=== PATIENT | female | born 1985 | race African-American/Black ===

== ENCOUNTER 2019-06-15 20:54 | Emergency (ER) | payer MEDICAID ==
[~2019-06-15] VITALS: Ht 172.7 cm; Wt 75.3 kg
--- NOTE | 2019-06-15 22:06 | NUR ---
CALLED PT IN WAITING ROOM. NO RESPONSE.
--- NOTE | 2019-06-15 22:58 | NUR ---
PT BIBS. C/O "TOOK SOME PILLS, I DONT KNOW WHAT KIND, ABOUT 2 HRS AGO" PT AMBULATORY. VSS. LETHARGIC BUT RESPONSIVE. +SI. SITTER AT BEDSIDE. SAFETY PRECAUTIONS IMPLEMENTED.
[2019-06-15 23:08] LABS: BASOPHILS # (AUTO) 0.1 /CMM (0.0-0.2); BASOPHILS % (AUTO) 1.3 % (0.0-2.0); EOSINOPHILS % (AUTO) 1.6 % (0.0-6.0); HEMATOCRIT 31 % (33-45); HEMOGLOBIN 10.4 g/dL (11.5-14.8); LYMPHOCYTES # (AUTO) 4.1 /CMM (0.8-4.8); MEAN CORPUSCULAR HGB CONC 34 g/dl (31.0-36.0); MEAN CORPUSCULAR VOLUME 88 fL (82-100); MONOCYTES # (AUTO) 0.6 /CMM (0.1-1.30); MONOCYTES % (AUTO) 7.3 % (2.0-12.0); NEUTROPHILS # (AUTO) 3.7 /CMM (1.8-8.9); NEUTROPHILS % (AUTO) 42.8 % (43.0-81.0); PLATELET COUNT (AUTO) 287 /CMM (150-450); RED BLOOD CELL COUNT(AUTO) 3.52 MIL/uL (4.0-5.2); WHITE BLOOD COUNT (AUTO) 8.7 K/uL (4.3-11.0)
--- NOTE | 2019-06-15 23:10 | NUR ---
EKG IN PROGRESS AT BEDSIDE
[2019-06-15 23:15] LABS: CALCIUM, SERUM 9.1 mg/dL (8.5-10.1); CARBON DIOXIDE 27 mmol/L (21-32); CHLORIDE 107 mmol/L (98-107); CREATININE 0.8 mg/dL (0.6-1.3); GLUCOSE 117 mg/dL (74-106); POTASSIUM 3.7 mmol/L (3.5-5.1); SODIUM SERUM 144 mmol/L (136-145); UREA NITROGEN, BLOOD 9 mg/dL (7-18)
--- NOTE | 2019-06-15 23:20 | NUR ---
URINE COLLECTED AND SENT TO LAB
[2019-06-15 23:21] LABS: ACETAMINOPHEN 0 ug/ml (10-30); ALANINE AMINOTRANSFERASE 29 U/L (12-78); ALBUMIN 3.5 g/dL (3.4-5.0); ALCOHOL, BLOOD < 3 mg/dL (0-0); ALKALINE PHOSPHATASE 48 U/L (46-116); ASPARTATE AMINOTRANSFERASE 21 U/L (15-37); BILIRUBIN,DIRECT 0.1 mg/dL (0.0-0.2); BILIRUBIN,TOTAL 0.2 mg/dL (0.2-1.0); SALICYLATE 3.4 mg/dL (2.8-20.0); TOTAL PROTEIN, SERUM 6.9 g/dL (6.4-8.2)
[2019-06-15 23:22] LABS: APPEARANCE,URINE CLEAR (CLEAR); BILIRUBIN,URINE NEGATIVE (NEGATIVE); BLOOD, URINE SMALL Ery/uL (NEGATIVE); COLOR,URINE YELLOW (YELLOW); KETONES,URINE NEGATIVE (NEGATIVE); LEUKOCYTE ESTERASE ,URINE NEGATIVE (NEGATIVE); NITRITE, URINE NEGATIVE (NEGATIVE); PROTEIN,URINE NEGATIVE (NEGATIVE); UGLUCOSE NEGATIVE (NEGATIVE); UROBILINOGEN,URINE 0.2 EU/dL (0.2)
[2019-06-16 06:54] VITALS: BP 101/94
--- NOTE | 2019-06-16 06:54 | NUR ---
Patient discharged to home in stable condition. Written and verbal after care instructions given. Patient verbalizes understanding of instruction.
== END 2019-06-16 06:55 | disposition home or self-care (01) ==
LOC: ER 20:54
DX: R45.851 Suicidal ideations (principal); F12.10 Cannabis abuse, uncomplicated; F15.10 Other stimulant abuse, uncomplicated; Z59.0 Homelessness
CPT/HCPCS: 36415; 80048; 80076; 80305; 80307; 80329; 81001; 84703; 85025; 93005; 99284; G0480; 81000-TC

== ENCOUNTER 2019-10-08 14:36 | Emergency (ER) | payer MEDICAID ==
[~2019-10-08] VITALS: Ht 162.6 cm; Wt 84.4 kg
--- NOTE | 2019-10-08 14:49 | NUR ---
patient came in to ther er c/o suicidal thoughts, "i am depress, i miss my mom", I want to overdose on pills. Needs medical clearance prior voluntary admission to [facility]. On room air, breathing evenly and unlabored. kept comfortable, sitter at bedside to assume care.
[2019-10-08 15:04] LABS: BASOPHILS # (AUTO) 0.1 /CMM (0.0-0.2); BASOPHILS % (AUTO) 1.6 % (0.0-2.0); EOSINOPHILS % (AUTO) 0.9 % (0.0-6.0); HEMATOCRIT 35 % (33-45); HEMOGLOBIN 11.2 g/dL (11.5-14.8); LYMPHOCYTES # (AUTO) 2.3 /CMM (0.8-4.8); LYMPHOCYTES % (AUTO) 36.1 % (20.0-44.0); MEAN CORPUSCULAR HGB CONC 32 g/dl (31.0-36.0); MEAN CORPUSCULAR VOLUME 89 fL (82-100); MONOCYTES # (AUTO) 0.4 /CMM (0.1-1.30); MONOCYTES % (AUTO) 6.2 % (2.0-12.0); NEUTROPHILS # (AUTO) 3.5 /CMM (1.8-8.9); NEUTROPHILS % (AUTO) 55.2 % (43.0-81.0); PLATELET COUNT (AUTO) 368 /CMM (150-450); RED BLOOD CELL COUNT(AUTO) 3.91 MIL/uL (4.0-5.2); WHITE BLOOD COUNT (AUTO) 6.3 K/uL (4.3-11.0)
[2019-10-08 15:07] LABS: APPEARANCE,URINE Clear (CLEAR); BILIRUBIN,URINE Negative (NEGATIVE); BLOOD, URINE Trace-intact Ery/uL (NEGATIVE); COLOR,URINE Yellow (YELLOW); KETONES,URINE Negative (NEGATIVE); LEUKOCYTE ESTERASE ,URINE Negative (NEGATIVE); NITRITE, URINE Negative (NEGATIVE); PROTEIN,URINE Negative (NEGATIVE); UGLUCOSE Negative (NEGATIVE); UROBILINOGEN,URINE 0.2 EU/dL (0.2)
[2019-10-08 15:12] LABS: BACTERIA,URINE Rare /HPF (None Seen); SQUAMOUS EPITHELIAL CELL,UR Few /HPF (None Seen); WBC,URINE 0-2 /HPF (0-3)
--- NOTE | 2019-10-08 15:21 | NUR ---
Social service consult requested by MD for voluntary psychiatric admission. Per chart review, pt is a 34-year-old -[place] female who has suicidal thoughts with a plan to "OD on pills." CERTIFIED SURGICAL TECHNOLOGIST met with the pt. bedside. CERTIFIED SURGICAL TECHNOLOGIST introduced self, explained the role of the SW and purpose of the visit. Pt is alert and oriented x 4. Pt appears sad. Pt reports her mom a a year ago and she misses her. Pt resides with her father in [place]. Pt has a boyfriend Dave, who pt states is a good support system for her. Pt was employed as an [employer] worker but quit her job. Pt has no source of income and is supported by her dad and boyfriend. Pt is ambulatory with her ADLS and IADLs. Pt states she has a psychiatric diagnosis of Bipolar and PTSD. Pt has a history of psychiatric hospitalizations. Pt states she is feeling suicidal with a plan to OD on drugs. Pt reports to have hallucinations at times. Pt states she takes Seroquel daily as it helps her sleep. CERTIFIED SURGICAL TECHNOLOGIST informed pt she will refer her to [facility] for voluntary psychiatric admission. Pt agreed. [facility]IMAS initiated voluntary admission at [facility] by contacting [facility]. DIMAS faxed clinicals to [facility] intake dept.
[2019-10-08 15:33] LABS: CALCIUM, SERUM 8.6 mg/dL (8.5-10.1); CARBON DIOXIDE 24 mmol/L (21-32); CHLORIDE 102 mmol/L (98-107); CREATININE 0.8 mg/dL (0.6-1.3); GLUCOSE 96 mg/dL (74-106); POTASSIUM 3.7 mmol/L (3.5-5.1); SODIUM SERUM 138 mmol/L (136-145); UREA NITROGEN, BLOOD 8 mg/dL (7-18)
[2019-10-08 15:39] LABS: ALANINE AMINOTRANSFERASE 9 U/L (12-78); ALBUMIN 3.9 g/dL (3.4-5.0); ALCOHOL, BLOOD < 3 mg/dL (0-0); ALKALINE PHOSPHATASE 58 U/L (46-116); ASPARTATE AMINOTRANSFERASE 15 U/L (15-37); BILIRUBIN,DIRECT 0.1 mg/dL (0.0-0.2); BILIRUBIN,TOTAL 0.3 mg/dL (0.2-1.0); SALICYLATE 4.2 mg/dL (2.8-20.0); TOTAL PROTEIN, SERUM 7.6 g/dL (6.4-8.2)
[2019-10-08 15:40] LABS: ACETAMINOPHEN 0 ug/ml (10-30)
--- NOTE | 2019-10-08 17:54 | NUR ---
Pt accepted to [facility], unit [address] Tariq Number for report is [phone]
--- NOTE | 2019-10-08 18:31 | NUR ---
CALLED [facility] FOR [facility]SPORT [facility] ETA 30 MINUTES.
--- NOTE | 2019-10-08 18:35 | NUR ---
Report given to Alberto COVINGTON for continuity of care
--- NOTE | 2019-10-08 18:47 | NUR ---
CALLED [facility] FOR AMBULANCE TRANSPORT TO [facility]. WILL CALL BACK WITH ETA AND TRANSFERRING AMBULANCE COMPANY. RESERVATION NUMBER [id number].
[2019-10-08 19:12] VITALS: BP 121/73
--- NOTE | 2019-10-08 19:12 | NUR ---
TOOK OVER PT CARE. PT PLACED ON MONITOR AND PULSE OX. SLEEPING. AWAITING ETA.
--- NOTE | 2019-10-08 19:20 | NUR ---
REPORT GIVEN TO [facility].
== END 2019-10-08 21:30 ==
LOC: ER 14:41
DX: R45.851 Suicidal ideations (principal); F32.9 Major depressive disorder, single episode, unspecified
CPT/HCPCS: 36415; 80048; 80076; 80305; 80307; 80329; 81001; 84703; 85025; 99285; G0480; 81000-TC

== ENCOUNTER 2020-08-28 14:11 | Emergency (ER) | payer MEDICAID ==
[~2020-08-28] VITALS: Ht 162.6 cm; Wt 84.4 kg
[2020-08-28 14:18] VITALS: BP 122/75
[2020-08-29] MEDS ORDERED: CEPH500C2 PO (02:37)
== END 2020-08-28 14:42 | disposition home or self-care (01) ==
LOC: ER 14:17
DX: Z53.21 Procedure and treatment not carried out due to patient leaving prior to being seen by health care provider (principal)

== ENCOUNTER 2020-08-28 18:37 | Emergency (ER) | payer MEDICAID ==
[~2020-08-28] VITALS: Ht 162.6 cm; Wt 72.6 kg
[2020-08-28] MEDS ORDERED: LORAZEPAM 1 MG TABLET PO ONE (20:00)
--- NOTE | 2020-08-28 20:05 | NUR ---
CALLED FOR COVID SWAB
[2020-08-28] MEDS ORDERED: LORAZEPAM 1 MG TABLET ONE (20:08)
--- NOTE | 2020-08-28 20:39 | NUR ---
[facility] SWABBED, SENT TO LAB.
[2020-08-28 20:45] LABS: BASOPHILS # (AUTO) 0.1 /CMM (0.0-0.2); BASOPHILS % (AUTO) 0.8 % (0.0-2.0); EOSINOPHILS % (AUTO) 0.4 % (0.0-6.0); HEMATOCRIT 37 % (33-45); HEMOGLOBIN 11.9 g/dL (11.5-14.8); LYMPHOCYTES # (AUTO) 3.3 /CMM (0.8-4.8); LYMPHOCYTES % (AUTO) 32.6 % (20.0-44.0); MEAN CORPUSCULAR HGB CONC 33 g/dl (31.0-36.0); MEAN CORPUSCULAR VOLUME 88 fL (82-100); MONOCYTES # (AUTO) 0.9 /CMM (0.1-1.30); MONOCYTES % (AUTO) 8.8 % (2.0-12.0); NEUTROPHILS # (AUTO) 5.8 /CMM (1.8-8.9); NEUTROPHILS % (AUTO) 57.4 % (43.0-81.0); PLATELET COUNT (AUTO) 319 /CMM (150-450); RED BLOOD CELL COUNT(AUTO) 4.14 MIL/uL (4.0-5.2)
[2020-08-28 21:08] LABS: CALCIUM, SERUM 9.7 mg/dL (8.5-10.1); CARBON DIOXIDE 25 mmol/L (21-32); CHLORIDE 104 mmol/L (98-107); CREATININE 1.2 mg/dL (0.6-1.3); GLUCOSE 93 mg/dL (74-106); POTASSIUM 3.9 mmol/L (3.5-5.1); SODIUM SERUM 139 mmol/L (136-145); UREA NITROGEN, BLOOD 14 mg/dL (7-18)
[2020-08-28 21:15] LABS: ALANINE AMINOTRANSFERASE 18 U/L (12-78); ALBUMIN 4.3 g/dL (3.4-5.0); ALCOHOL, BLOOD < 3 mg/dL (0-0); ALKALINE PHOSPHATASE 59 U/L (46-116); ASPARTATE AMINOTRANSFERASE 13 U/L (15-37); BILIRUBIN,DIRECT 0.1 mg/dL (0.0-0.2); BILIRUBIN,TOTAL 0.4 mg/dL (0.2-1.0); TOTAL PROTEIN, SERUM 8.5 g/dL (6.4-8.2)
[2020-08-28 21:19] LABS: ACETAMINOPHEN 0 ug/ml (10-30)
[2020-08-28 21:35] LABS: BILIRUBIN,URINE NEGATIVE (NEGATIVE); COLOR,URINE YELLOW (YELLOW); LEUKOCYTE ESTERASE ,URINE TRACE (NEGATIVE); NITRITE, URINE POSITIVE (NEGATIVE); PH,URINE 6.5 (5.0-8.0); PROTEIN,URINE 100 mg/dl (NEGATIVE); UGLUCOSE NEGATIVE (NEGATIVE)
[2020-08-28] MEDS ORDERED: CEPHALEXIN MONOHYDRATE 500 MG CAPSULE PO ONE ×2 (22:00→22:13)
[2020-08-28 22:03] LABS: BACTERIA,URINE 4+ /HPF (None Seen)
--- NOTE | 2020-08-28 22:59 | NUR ---
Call from lab. Rapid covid negative.
--- NOTE | 2020-08-28 23:05 | NUR ---
Facesheet and clinicals faxed to [facility].
--- NOTE | 2020-08-29 01:39 | NUR ---
PT ACCEPTED TO [facility] BY DR JAUREGUI. UNIT [address]. # FOR REPORT [phone]
--- NOTE | 2020-08-29 01:42 | NUR ---
[facility] CALLED FOR TRANSPORT. ETA [phone]
[2020-08-29 01:43] VITALS: BP 121/68
--- NOTE | 2020-08-29 01:52 | NUR ---
REPORT GIVEN TO ALVIN COVINGTON FOR [facility]
[2020-08-29] MEDS ORDERED: CEPH500C2 PO (02:37)
--- NOTE | 2020-08-29 02:38 | NUR ---
[facility] AT BEDSIDE FOR TRANSPORT
== END 2020-08-29 02:48 ==
LOC: ER 18:42
DX: R45.851 Suicidal ideations (principal); F32.9 Major depressive disorder, single episode, unspecified; N39.0 Urinary tract infection, site not specified; F20.9 Schizophrenia, unspecified; F15.90 Other stimulant use, unspecified, uncomplicated; Z20.822 Contact with and (suspected) exposure to COVID-19
CPT/HCPCS: 36415; 80048; 80076; 80299; 80307; 80320; 81001; 84703; 85025; 87077; 87086; 87186; 87426; 99285; C9803; G0480

== ENCOUNTER 2021-04-20 17:39 | Emergency (ER) | payer MEDICAID ==
[~2021-04-20] VITALS: Ht 162.6 cm; Wt 61.2 kg
[~2021-04-20 17:39] MED LIST: CEPH500C2 PO
--- NOTE | 2021-04-20 17:56 | NUR ---
TO ER WAITING ROOM, REQUIRES MEDICAL CLEARANCE FOR VOLUNTARY ADMISSION TO [facility], BREATHING EVEN AND NON LABORED, DENIES ANY PAIN
--- NOTE | 2021-04-20 18:19 | NUR ---
URINE COLLECTED AND SENT TO LAB
--- NOTE | 2021-04-20 18:20 | NUR ---
COVID SWAB DONE AND SENT
[2021-04-20 18:56] LABS: BASOPHILS # (AUTO) 0.1 K/uL (0.0-0.2); BASOPHILS % (AUTO) 0.7 % (0.0-2.0); EOSINOPHILS % (AUTO) 0.6 % (0.0-6.0); HEMATOCRIT 35 % (33-45); HEMOGLOBIN 11.1 g/dL (11.5-14.8); LYMPHOCYTES # (AUTO) 2.5 K/uL (0.8-4.8); MEAN CORPUSCULAR HGB CONC 32 g/dl (31.0-36.0); MEAN CORPUSCULAR VOLUME 89 fL (82-100); MONOCYTES # (AUTO) 0.4 K/uL (0.1-1.30); MONOCYTES % (AUTO) 5.7 % (2.0-12.0); NEUTROPHILS # (AUTO) 4.7 K/uL (1.8-8.9); PLATELET COUNT (AUTO) 377 K/uL (150-450); WHITE BLOOD COUNT (AUTO) 7.7 K/uL (4.3-11.0)
[2021-04-20 19:09] LABS: CARBON DIOXIDE 23 mmol/L (21-32); CHLORIDE 104 mmol/L (98-107); GLUCOSE 71 mg/dL (74-106); POTASSIUM 3.8 mmol/L (3.5-5.1); SODIUM SERUM 138 mmol/L (136-145); UREA NITROGEN, BLOOD 19 mg/dL (7-18)
[2021-04-20 19:11] LABS: BILIRUBIN,URINE Negative (NEGATIVE); COLOR,URINE YELLOW (YELLOW); LEUKOCYTE ESTERASE ,URINE Negative (NEGATIVE); NITRITE, URINE Positive (NEGATIVE); PROTEIN,URINE Negative (NEGATIVE); UGLUCOSE Negative (NEGATIVE); UROBILINOGEN,URINE 0.2 EU/dL (0.2)
[2021-04-20 19:18] LABS: BACTERIA,URINE 2+ /HPF (None Seen); SQUAMOUS EPITHELIAL CELL,UR Few /HPF (None Seen)
[2021-04-20 19:23] LABS: ALANINE AMINOTRANSFERASE 26 U/L (12-78); ALBUMIN 3.9 g/dL (3.4-5.0); ALKALINE PHOSPHATASE 67 U/L (46-116); ASPARTATE AMINOTRANSFERASE 22 U/L (15-37); BILIRUBIN,DIRECT 0.1 mg/dL (0.0-0.2); BILIRUBIN,TOTAL 0.5 mg/dL (0.2-1.0); TOTAL PROTEIN, SERUM 7.9 g/dL (6.4-8.2)
[2021-04-20 19:24] LABS: ACETAMINOPHEN < 2 ug/ml (10-30); ALCOHOL, BLOOD < 3 mg/dL (0-0)
[2021-04-20] MEDS: NITROFURANTOIN/NITROFURAN MONOHYDRATE 100 MG CAPSULE PO ONE (20:00)
--- NOTE | 2021-04-20 20:16 | NUR ---
FACESHEET AND CLINICALS FAXED TO [facility].
[2021-04-20] MEDS ORDERED: NITROFURANTOIN/NITROFURAN MONOHYDRATE 100 MG CAPSULE ONE (20:20)
[2021-04-21] MEDS ORDERED: ACETAMINOPHEN ES 500 MG TABLET ONE (02:52)
[2021-04-21] MEDS: ACETAMINOPHEN ES 500 MG TABLET PO ONE (03:00)
--- NOTE | 2021-04-21 03:41 | NUR ---
PT ACCEPTED TO [facility] BY DR ABEL. # FOR REPORT [phone]
--- NOTE | 2021-04-21 03:48 | NUR ---
[facility] CALLED FOR TRANSPORT ETA 1.5 HRS.
--- NOTE | 2021-04-21 05:09 | NUR ---
REPORT OFELIA TO PACO COVINGTON FOR [facility]
--- NOTE | 2021-04-21 05:24 | NUR ---
PT DENIES SI AND HI. REQUESTED TO LEAVE.
[2021-04-21 06:46] VITALS: BP 113/70
--- NOTE | 2021-04-21 06:46 | NUR ---
[facility] MADE AWARE PT WILL NOT BE TRANSFERED.
== END 2021-04-21 06:47 | disposition home or self-care (01) ==
LOC: ER 17:45
DX: F32.A Depression, unspecified (principal); N39.0 Urinary tract infection, site not specified; Z20.822 Contact with and (suspected) exposure to COVID-19; R82.5 Elevated urine levels of drugs, medicaments and biological substances; R31.29 Other microscopic hematuria; F17.200 Nicotine dependence, unspecified, uncomplicated; Z53.29 Procedure and treatment not carried out because of patient's decision for other reasons; Z91.14 Patient's other noncompliance with medication regimen
CPT/HCPCS: 36415; 80048; 80076; 80143; 80307; 80320; 81001; 85025; 87077; 87086; 87186; 87426; 99283; C9803; G0480